=== PATIENT | female | born 1945 | race Caucasian/White ===

== ENCOUNTER → 2018-06-22 09:29 | Outpatient (CLI) | payer MEDICARE, OTHER | END | disposition home or self-care (01) | LOC: D.HCCARDIO 09:29 | PROVIDERS: ATTEND Internal Medicine Cardiovascular Disease | DX: R07.9 Chest pain, unspecified (principal) ==

== ENCOUNTER 2018-07-04 11:59 | Outpatient (CLI) | payer MEDICARE, OTHER ==
[~2018-07-04] VITALS: Ht 162.6 cm; Wt 84.1 kg
--- NOTE | ~2018-07-04 | HEMODYNAMI ---
PATIENT:MARY LYMAN MEDICAL RECORD: [id number] : 45 LOCATION:[facility] ADMISSION DATE: 07/04/18 Generatedon:07/04/201816:12 Patient name: MARY LYMAN Patient #: [id number] SSN: : Date of study: 07/04/2018 Page: Of Hemodynamic Procedure Report Patient Data Patient Demographics Procedure consent was obtained First Name: MARY Gender: Female Last Name: ESMER : 1945 Middle Initial: M Age: 72 year(s) Patient #: [id number] Race: Unknown Additional ID: [id number] Contact details [address]: [address] [place] [address] State: [place] City: [place] Zip code: [address] Past Medical History Allergies Allergen Reaction Date Comments Reported Other allergy 07/04/2018 WILIAM PEGUERO Admission Admission Data Admission Date: 07/04/2018 Admission Time: 11:59 Height (in.): 64 BSA: 1.91 (m2) Height (cm.): 162.56 BMI: 32.27 (kg/m2) Weight (lbs.): 188 Weight (kg.): 85.28 Lab Results Lab Result Date: 07/04/2018 Lab Result Time: 0:00 Biochemistry Name Units Result Min Max BUN mg/dl 14 --(--*-)-- 7 18 Creatinine mg/dl 0.7 --(*---)-- 0.6 1.3 CBC Name Units Result Min Max Hematocrit % 39.4 -*(----)-- 42 54 Hemoglobin g/dl 13.1 -*(----)-- 13.5 17.5 Procedure Procedure Types Cath Procedure Diagnostic Procedure C [facility] w/Coronaries Procedure Description Procedure Date Procedure Date: 07/04/2018 Procedure Start Time: 15:57 Procedure End Time: 16:11 Procedure Staff Name Function Maxwell Gonzáles MD Performing Physician Tawanna Arevalo RN Nurse Bhupinder Panda RT Monitor Peggy Babin RT Scrub Yolande Duke RN Crystalizer Procedure Data Cath Procedure Fluoroscopy Diagnostic fluoroscopy Total fluoroscopy Time: 1.3 time: 1.3 min min Diagnostic fluoroscopy Total fluoroscopy dose: 337 dose: 337 mGy mGy Contrast Material Contrast Material Type Amount (ml) Isovue 300 0 Isovue 370 42 Entry Location Entry Primary Successful Side Size Upsize Upsize Entry Closure Succes sful Closure Location (Fr) 1 (Fr) 2 (Fr) Remarks Device Remarks Femoral Right 5 Fr Exoseal artery Diagnostic catheters Device Type Used For End Catheter Placement MULTIPACK JL 4.0 5Fr Left Coronary catheter Angiography MULTIPACK 3DRC 5Fr Right Coronary catheter Angiography MULTIPACK Pigtail 5 Fr LV Angiography catheter Procedure Complications No complications Procedure Medications Medication Administration Route Dosage 0.9% NaCl I.V. 100 ml/hr Oxygen etCO2 Nasal cannula 2 l/min Lidocaine 2% added to field 20 Heparin Flush Bag added to field 2 bags (1000units/500ml NS) Versed I.V. 2 mg Fentanyl I.V. 50 mcg Versed I.V. 2 mg Fentanyl I.V. 50 mcg Hemodynamics Rest BSA: 1.91 (m2) HGB: 13.1 (g/dl) O2 Consumption: Estimated: 175.77 (ml/min) O2 Co nsumption indexed: Estimated:92.03 (ml/min/m) Heart Rate: 71 (bpm) Pressure Samples Time Site Value (mmHg) Purpose Heart Use Rate(bpm) 16:05 LV 127/2,16 EDP 72 16:05 AO 136/64(96) Pullback 78 16:05 LV 137/-3,16 Pullback 78 Gradients Valve Time Site 1 Site 2 Mean SEP/DFP Peak To Heart Use (mmHg) (sec/min) Peak Rate (mmHg) (bpm) Aortic 16:05 LV AO 6 17 1 78 137/-3,16 136/64(96) Calculations Valve P-P Mean Valve Index Valve Source Name Gradient Area Flow (cm2) Aortic 1 6 1 6 Snapshots Pre Cath Intra NCS Post Cath Vital Signs Time Heart Resp SPO2 etCO2 NIBP (mmHg) Rhythm Pain Sedation Rate (ipm) (%) (mmHg) Status Level (bpm) 15:52:02 67 11 100 44.7 122/66(101) NSR 0 (11) 10(A) , No pain 15:57:04 64 15 97 40.2 100/58(71) NSR 0 (11) 10(A) , No pain 16:01:09 67 31 99 38 86/54(74) NSR 0 (11) 9(A) , No pain 16:05:56 78 14 96 46.9 123/78(104) NSR 0 (11) 9(A) , No pain 16:10:08 75 15 98 43.2 141/72(109) NSR 0 (11) 10(A) , No pain Medications Time Medication Route Dose Verified Delivered Reason Notes Eff ectiveness by by 15:51:03 0.9% NaCl I.V. 100 Maxwell Tawanna used for ml/hr Eliecer Arevalo neonatal icu coordinator 15:51:09 Oxygen etCO2 2 Maxwell Tawanna used for Nasal l/min Eliecer Arevalo procedure cannula RN 15:51:14 Lidocaine 2% added 20ml Maxwell Maxwell for local to vial Eliecer Gonzáles MD anesthetic field 15:51:19 Heparin Flush added 2 Maxwell Maxwell used for Bag to bags Eliecer Gonzáles MD procedure (1000units/500ml field NS) 15:55:37 Versed I.V. 2 mg Maxwell Tawanna for Eliecer Arevalo sedation RN 15:55:46 Fentanyl I.V. 50 Maxwell Tawanna for mcg Eliecer Arevalo sedation RN 16:00:49 Versed I.V. 2 mg Maxwell Tawanna for Eliecer Arevalo sedation RN 16:00:56 Fentanyl I.V. 50 Maxwell Tawanna for mcg Eliecer Arevalo sedation rougher helper Log Time Note 15:08:47 Signed procedure consent form obtained from patient. 15:08:48 Time tracking: Regular hours (M-F 7:00 - 5:00) 15:08:51 Plan of Care:Hemodynamics will remain stable., Cardiac rhythm will remain stable., Comfort level will be maintained., Respiratory function will remain adequate., Patient/ family verbilizes understanding of procedure., Procedure tolerated without complication., Recovers from procedure without complications.. 15:08:53 Diagnostic Cath status Elective 15:10:57 H&P Date Dictated: 06/18/2018 Within 30 days and on chart., H&P Addendum completed by physician on day of procedure. (MUST COMPLETE FOR ALL OUTPATIENTS). 15:11:12 Patient allergic to Other allergyCODEINE, THORAZINE 15:12:18 Patient Height : 64 inches 15:12:22 Patient Weight : 188 lbs 15:27:14 Lab Result : BUN 14 mg/dl 15:27:14 Lab Result : Hemoglobin 13.1 g/dl 15:27:14 Lab Result : Creatinine 0.7 mg/dl 15:27:14 Lab Result : Hematocrit 39.4 % 15:31:23 Yolande Duke RN sent for patient. Start room use. 15:40:24 Patient received from Pre/Post Procedure Room to CCL 1 Alert and oriented. Tansferred to table in Supine position. 15:40:25 Warm blankets applied, and stephanie hugger turned on for patient comfort. 15:40:25 Correct patient and procedure confirmed by team. 15:40:26 ECG and BP/O2 sat monitors applied to patient. 15:50:50 Vital chart was started 15:51:03 0.9% NaCl 100 ml/hr I.V. was administered by Tawanna Arevalo RN; used for procedure; 15:51:09 Oxygen 2 l/min etCO2 Nasal cannula was administered by Tawanna Arevalo RN; used for procedure; 15:51:14 Lidocaine 2% 20ml vial added to field was administered by Maxwell Gonzáles MD; for local anesthetic; 15:51:19 Heparin Flush Bag (1000units/500ml NS) 2 bags added to field was administered by Maxwell Gonzáles MD; used for procedure; 15:52:36 Baseline sample Acquired. 15:52:40 Rhythm: sinus rhythm 15:52:41 Full Disclosure recording started 15:52:42 Pre-procedure instructions explained to patient. 15:52:42 Pre-op teaching completed and patient verbalized understanding. 15:52:47 Family in waiting room. 15:52:50 Patient NPO since Midnight. 15:52:51 Is the patient allergic to Iodine/contrast media? No. 15:52:58 Is patient on blood thinner?No 15:53:46 Patient diabetic? No. 15:53:47 ----Pre-sedation anethsthesia assessment.---- 15:53:50 Previous problem with sedation/anesthesia? No ? 15:53:52 Snore? Yes 15:53:54 Sleep apnea? Yes 15:53:55 Deviated septum? No 15:53:57 Opens mouth fully? Yes 15:53:58 Sticks out tongue? Yes 15:54:03 Airway obstruction? Yes COPD 15:54:07 Dentures? No ? 15:54:10 Pre procedure: right dorsailis pedis pulse 1+ Palpable, but thready & weak; easily obliterated 15:54:16 Modified Alpesh's test Ulnar > 7 seconds. 15:54:19 Patient pain scale 0/10 ?. 15:54:32 IV patent on arrival in left antecubital with 0.9% NaCl at 10ml/hr. 15:54:35 Lab results completed and on chart. 15:54:38 Right groin area was prepped with chlora-prep and draped in sterile fashion 15:54:39 Alarms reviewed by R. N. 15:54:40 Sharps counted by scrub and verified by R.N. 15:54:41 Physician arrived 15:54:42 --------ALL STOP TIME OUT------ 15:54:42 Final Timeout: patient, procedure, and site verified with staff and physician. All members of the team are in agreement. 15:54:47 Right groin site verified by team. 15:54:50 Maximum allowable Isovue 300 dose 300ml. Physician notified. (300ml for normal creatinines. For patients with creatinine of 1.7 or higher multiply weight(kg) x 5 divided by creatinine.) 15:54:55 Fire Safety Assessment: A--An alcohol-based skin anteseptic being used preoperatively., C--Open oxygen or nitrous oxide is being used., D--An ESU, laser, or fiber-optic light is being used. 15:54:58 Physical assessment completed. ASA score P 2 - A patient with mild systemic disease as per Maxwell Gonzáles MD. 15:55:01 Sedation plan: IV Moderate Sedation Medication:Versed, Fentanyl 15:55:16 Use device set Femoral Dx 15:55:17 ACIST Syringe (36537) opened to sterile field. 15:55:17 Bag Decanter () opened to sterile field. 15:55:18 Medline Cath Pack ([id number]) opened to sterile field. 15:55:18 DIAGNOSTIC WIRE .035 260cm J wire (249916) opened to sterile field. 15:55:20 ACIST Hand Control (38813) opened to sterile field. 15:55:20 ACIST Manifold (73940) opened to sterile field. 15:55:20 DIAGNOSTIC Multipack 5Fr catheter set ([id number]) opened to sterile field. 15:55:22 Tegaderm 4 x 4 (1626W) opened to sterile field. 15:55:25 SHEATH 5FR [place] ([id number]) opened to sterile field. 15:55:37 Versed 2 mg I.V. was administered by Tawanna rAevalo RN; for sedation; 15:55:46 Fentanyl 50 mcg I.V. was administered by Tawanna Arevalo RN; for sedation; 15:56:56 Procedure started. 15:57:13 Local anesthetic to right femoral artery with Lidocaine 2% by Maxwell Gonzáles MD.INITIAL ACCESS ONLY 15:57:22 A 5 Fr sheath was inserted into the Right Femoral artery 15:57:44 Zero performed for pressure channel P1 15:58:43 A MULTIPACK JL 4.0 5Fr catheter was advanced over the wire and used for Left Coronary Angiography. 15:58:47 LCA angiography performed. 16:00:49 Versed 2 mg I.V. was administered by Tawanna Arevalo RN; for sedation; 16:00:56 Fentanyl 50 mcg I.V. was administered by Tawanna Arevalo RN; for sedation; 16:03:17 Catheter exchanged over wire. 16:03:25 A MULTIPACK 3DRC 5Fr catheter was advanced over the wire and used for Right Coronary Angiography. 16:03:28 RCA angiography performed. 16:05:03 Catheter exchanged over wire. 16:05:09 A MULTIPACK Pigtail 5 Fr catheter was advanced over the wire and used for LV Angiography. 16:05:39 EF : 55 % 16:05:47 LV gram done using LAI 16:05:48 LV hemodynamics recorded. 16:08:43 Catheter exchanged over wire. 16:08:46 EXOSEAL 5Fr (EX500) opened to sterile field. 16:09:10 Sheath removed intact; hemostasis achieved with Exoseal to the Right Femoral artery. 16:09:12 Procedure ended.(Physican Out) 16::48 Fluoroscopy time 01.30 minutes. 16::53 Fluoroscopy dose: 337 mGy 16::53 Flurop Dose total: 337 16:09:57 Contrast amount:Isovue 300 0ml. 16:10:04 Contrast amount:Isovue 370 42ml. 16:10:06 Sharps counted by scrub and verified by R.N. 16:10:06 Insertion/operative site no bleeding no hematoma. 16:10:10 Post-op/insertion site Right Femoral artery dressed using a 4 x 4 and Tegaderm. 16:10:13 Post right femoral artery:stable 16:10:43 Post Procedure Pulses reassessed and unchanged 16:10:45 Post procedure: right dorsailis pedis pulse 1+ Palpable, but thready & weak; easily obliterated. 16:10:48 Post procedure rhythm: sinus rhythm 16:10:49 Post procedure instruction explained to patient.Patient verbalizes understanding. 16:10:50 Procedure and supply charges have been captured, reviewed, submitted and are correct. 16:11:06 Procedure Complication : No complications 16:11:08 Vital chart was stopped 16:11:09 See physician's report for complete and final results. 16:11:12 Report given to Pre/Post Procedure Room. 16:11:14 Patient transfered to Pre/Post Procedure Room with Stretcher. 16:11:18 Procedure ended. 16:11:18 Full Disclosure recording stopped 16:11:21 End room use (Document Last) Device Usage Item Name Manufacture Quantity Catalog Hospital Part Current Minimal L ot# / Number Charge Number Stock Stock Serial# Code ACIST Acist 1 64454 955850 113320 271262 20 Syringe Medical (53901) Systems Inc Bag Microtek 1 2001S 888032 91810 749719 5 Decanter Medical Inc. () Medline Medline 1 [id number] 165354 63136 037413 5 Cath Pack ([id number]) DIAGNOSTIC St Manuel 1 505552 124714 029228 213260 30 WIRE .035 260cm J wire (678152) ACIST Hand Acist 1 78164 928401 863855 760931 5 Control Medical (15086) Systems Inc ACIST Acist 1 59640 662102 296637 017256 5 Manifold Medical (64993) Systems Inc DIAGNOSTIC Cardinal 1 [id number] 249782 05760 803388 30 Vitalea Science Health 5Fr catheter set ([id number]) Tegaderm 4 3M 1 1626W 046316 677054 713427 5 x 4 (1626W) SHEATH 5FR Terumo 1 URZ139 710623 603157 310602 5 [place] (YJB893) MULTIPACK Cardinal 1 317969 5 JL 4.0 5Fr Health catheter MULTIPACK Cardinal 1 101742 5 3DRC 5Fr Health catheter MULTIPACK Cardinal 1 700536 5 Pigtail 5 Health Fr catheter EXOSEAL 5Fr Cardinal 1 EX500 925108 943532 705797 10 (EX500) Health Signature Audit [place] Stage Time Signature Unsigned Intra-Procedure 07/04/2018 Bhupinder Panda RT(R) 4:12:20 PM Signatures Monitor : Bhupinder Panda RT Signature : Date : Time : [address] [address]
[2018-07-04] MEDS ORDERED: ZITHROMAX250 MG PO (12:15)
[2018-07-04] MEDS ORDERED: LOPRESSOR25 MG PO (12:15)
[2018-07-04] MEDS ORDERED: PROTONIX40 MG PO (12:16)
[2018-07-04] MEDS ORDERED: ZOCOR40 MG PO (12:16)
[2018-07-04] MEDS ORDERED: ZOLOFT50 MG PO (12:17)
[2018-07-04] MEDS ORDERED: CARAFATE1 G PO (12:18)
[2018-07-04] MEDS ORDERED: ALBUTEROL SULF8.5 GM INH (12:18)
[2018-07-04] MEDS ORDERED: ASPIRIN81 MG PO (12:19)
[2018-07-04] MEDS ORDERED: VITAMIN D31000 UNI2 PO (12:20)
[2018-07-04] MEDS ORDERED: CO Q-1050 MG (12:21)
[2018-07-04 12:36] VITALS: BP 146/60; Ht 162.6 cm; Wt 84.1 kg
[2018-07-04 12:49] LABS: BASOPHILS 0.4 % (0-2); EOSINOPHILS 3.8 % (0-7); HEMATOCRIT 39.4 % (36.0-48.0); HEMOGLOBIN 13.1 g/dL (12-16); IMMATURE GRANULOCYTES 0.3 % (0-5); LYMPHOCYTES 27.3 % (15-50); MCH 29.7 pg (26.0-34.0); MCHC 33.2 g/dL (31.0-37.0); MCV 89.3 fL (80.0-100.0); MEAN PLATELET VOLUME 9.6 fL (7.4-10.4); MONOCYTES 9.2 % (2-11); PLATELET COUNT 268 10x3/uL (130-400); RBC 4.41 10x6/uL (4.00-5.40); RDW 13.5 % (11.5-14.5); WBC 7.6 10x3/uL (4.8-10.8)
[2018-07-04 12:54] LABS: CALC OSMOLALITY 281 mosm/kg (275-300); CALCIUM 8.8 mg/dL (8.5-10.1); CHLORIDE - SERUM 104 mmol/L (98-107); CREATININE - SERUM 0.7 mg/dL (0.6-1.3); GLUCOSE 93 mg/dL (74-106); POTASSIUM - SERUM 4.3 mmol/L (3.5-5.1); SODIUM 141 mmol/L (136-145); UREA NITROGEN 14 mg/dL (7-18); eGFR NON AFRICAN AMERICAN 87 mL/min (90-120)
--- NOTE | 2018-07-04 16:31 | NUR ---
RECIEVED TO ROOM VIA STRETCHER FROM GENERAL ACCOUNTING CLERK WITH 5 FR EXOSEAL R/GROIN CDI NO BLEEDING OR HEMATOMA NOTED. HR 66 BP 139/73. [facility]
--- NOTE | 2018-07-04 16:37 | NUR ---
5 FR EXOSEAL R/GROIN IS CDI WITH CHEST PAIN DENIED HR 52 BP 115/68 FAMILY IS PRESENT AT BEDSIDE INSTRUCTED PATIENT TO KEEP HEAD FLAT ON PILLOW WITH RLE STRAIGHT
--- NOTE | 2018-07-04 16:50 | NUR ---
RIGHT GROIN DRESSING C/D/I. NO S/S OF HEMATOMA NOTED. RIGHT PEDAL PULSE PALPABLE. PT TOLERATING CLEAR LIQUIDS. DENIES NAUSEA. VSS.
--- NOTE | 2018-07-04 17:10 | NUR ---
PT'S HEAD OF BED INC TO 30 DEGREES. RIGHT GROIN DRESSING C/D/I. NO S/S OF HEMATOMA NOTED. RIGHT PEDAL PULSE PALPBLE. VSS. NO NEEDS AT THIS TIME.
--- NOTE | 2018-07-04 17:30 | NUR ---
PIV REMOVED WITH DRESSING APPLIED. PATIENT DENIED CHEST PAIN WITH 5 FR EXOSEAL R/GROIN CDI. PATIENT UP TO GET DRESSED FOR DISCHARGE HOME NO DISTRESS
--- NOTE | 2018-07-04 17:40 | NUR ---
PT DRESSED SELF. AMBULATED TO RESTROOM. STEADY GAIT NOTED. VOIDED WITHOUT DIFFICULTY. DISCUSSED DISCHARGE INSTRUCTIONS WITH PT. SHE VOICED UNDERSTANDING.
--- NOTE | 2018-07-04 18:04 | NUR ---
5 FR EXOSEAL R/GROIN REMAINS CDI WITH CHEST PAIN DENIED PATIENT LEFT VIA WC TO PARKING FOR TRANSPORT HOME NO DISTRESS NOTED
== END 2018-07-04 18:06 | disposition home or self-care (01) ==
LOC: D.CATH 11:59
PROVIDERS: ATTEND Internal Medicine Cardiovascular Disease
DX: I20.9 Angina pectoris, unspecified (principal); Z01.812 Encounter for preprocedural laboratory examination

== ENCOUNTER → 2019-01-28 09:42 | Outpatient (CLI) | payer MEDICARE, OTHER ==
[2018-07-04 12:36] VITALS: BMI 31.8
[~2019-01-28 09:42] MED LIST: ALBUTEROL SULF8.5 GM INH; ASPIRIN81 MG PO; CARAFATE1 G PO; CO Q-1050 MG; LOPRESSOR25 MG PO; PROTONIX40 MG PO; VITAMIN D31000 UNI2 PO; ZITHROMAX250 MG PO; ZOCOR40 MG PO; ZOLOFT50 MG PO
== END | disposition home or self-care (01) ==
LOC: D.HCCECHO 09:42 → D.HCCARDIO 10:30
PROVIDERS: ATTEND Internal Medicine Cardiovascular Disease
DX: I10 Essential (primary) hypertension (principal)

== ENCOUNTER → 2019-09-10 09:52 | Outpatient (CLI) | payer MEDICARE, OTHER ==
[2018-07-04 12:36] VITALS: BMI 31.8
== END | disposition home or self-care (01) ==
LOC: D.HCCARDIO 09:52
PROVIDERS: ATTEND Internal Medicine Cardiovascular Disease
DX: I20.9 Angina pectoris, unspecified (principal)

== ENCOUNTER 2019-09-17 07:33 | Outpatient (CLI) | payer MEDICARE, OTHER ==
[~2019-09-17] VITALS: Ht 162.6 cm; Wt 85.6 kg
--- NOTE | ~2019-09-17 | HEMODYNAMI ---
PATIENT:MARY LYMAN MEDICAL RECORD: [id number] : 45 LOCATION:D.CAT ADMISSION DATE: 09/17/19 Generatedon:09/17/201910:32 Patient name: MARY LYMAN Patient #: [id number] : 1945 Date of study: 09/17/2019 Page: Of Hemodynamic Procedure Report Patient Data Patient Demographics Procedure consent was obtained First Name: MARY Gender: Female Last Name: ESMER : 1945 Middle Initial: M Age: 74 year(s) Patient #: [id number] Race: Unknown SSN: [id number] Additional ID: [id number] Contact details [address]: [address] [place] [address] State: [place] City: [place] Zip code: [address] Past Medical History Allergies Allergen Reaction Date Comments Reported Other allergy 07/04/2018 CODEINE, THORAZINE Other allergy 09/17/2019 Codeine, Thorazine Admission Admission Data Admission Date: 09/17/2019 Admission Time: 7:33 Arrival Date: 09/17/2019 Arrival Time: 0:00 Admit Source: Other Insurance Payor: Medicare Height (in.): 66 BSA: 1.95 (m2) Height (cm.): 167.64 BMI: 30.51 (kg/m2) Weight (lbs.): 189 Weight (kg.): 85.73 Lab Results Lab Result Date: 09/17/2019 Lab Result Time: 0:00 Biochemistry Name Units Result Min Max BUN mg/dl 16 --(---*)-- 7 18 Creatinine mg/dl 0.7 --(*---)-- 0.6 1.3 eGFR ml/min 87 -*(----)-- 90 120 NONAFRICAN CBC Name Units Result Min Max Hemoglobin g/dl 13.6 --(*---)-- 13.5 17.5 Procedure Procedure Types Cath Procedure Diagnostic Procedure C LHC w/Coronaries Sedation Charges Moderate Sedation up to 15 minutes Procedure Description Procedure Date Procedure Date: 09/17/2019 Procedure Start Time: 10:14 Procedure End Time: 10:31 Procedure Staff Name Function Maxwell Gonzáles MD Performing Physician Annia Amanda RT Monitor Tawanna Arevalo RN Nurse Marilynn Sprague RT Scrub Procedure Data Cath Procedure Fluoroscopy Diagnostic fluoroscopy Total fluoroscopy Time: 2.1 time: 2.1 min min Diagnostic fluoroscopy Total fluoroscopy dose: 365 dose: 365 mGy mGy Contrast Material Contrast Material Type Amount (ml) Isovue 300 56 Entry Location Entry Primary Successful Side Size Upsize Upsize Entry Closure Eugene ccessful Closure Location (Fr) 1 (Fr) 2 (Fr) Remarks Device Remarks Radial Right 6 Fr Mechanical artery Short Compression Estimated blood loss: 10 ml Diagnostic catheters Device Type Used For End Catheter Placement DIAGNOSTIC Beverly 110cm 5 Procedure Fr catheter ([id number]) Procedure Complications No complications Procedure Medications Medication Administration Route Dosage 0.9% NaCl I.V. 100 ml/hr Oxygen etCO2 Nasal cannula 2 l/min Lidocaine 2% added to field 20 Heparin Flush Bag added to field 2 bags (1000units/500ml NS) Radial Cocktail added to field 1 syringe (Verapamil 2mg/Nitro 400mcg/Heparin 1500units) Versed I.V. 2 mg Fentanyl I.V. 50 mcg Versed I.V. 2 mg Fentanyl I.V. 50 mcg Hemodynamics Rest BSA: 1.95 (m2) HGB: 13.6 (g/dl) O2 Consumption: Estimated: 166.76 (ml/min) O2 Co nsumption indexed: Estimated:85.52 (ml/min/m) Heart Rate: 55 (bpm) Pressure Samples Time Site Value (mmHg) Purpose Heart Use Rate(bpm) 10:17 LV 107/-1,14 Snapshot 73 Gradients Valve Time Site Site Mean SEP/DFP Peak To Heart Use 1 2 (mmHg) (sec/min) Peak Rate (mmHg) (bpm) Aortic 10:18 LV AO 65 Snapshots Pre Cath Intra NCS Post Cath Vital Signs Time Heart Resp SPO2 etCO2 NIBP (mmHg) Rhythm Pain Sedation Rate (ipm) (%) (mmHg) Status Level (bpm) 9:44:27 56 22 99 43.3 130/63(100) SB 0 (11) 10(A) , No pain 9:48:55 55 12 99 45.5 114/55(91) SB 0 (11) 10(A) , No pain 9:53:13 57 13 95 38.1 97/57(73) SB 0 (11) 10(A) , No pain 9:58:12 55 11 96 44.8 Measuring SB 0 (11) 10(A) , No pain 9:58:17 55 11 96 44.8 111/59(89) SB 0 (11) 10(A) , No pain 10:02:37 55 14 96 40.3 112/61(89) SB 0 (11) 10(A) , No pain 10:07:01 57 12 97 9.7 105/52(67) SB 0 (11) 10(A) , No pain 10:11:21 54 18 97 40.3 99/51(85) SB 0 (11) 10(A) , No pain 10:15:37 54 14 98 22.4 113/59(77) SB 0 (11) 10(A) , No pain 10:19:59 65 11 97 45.5 110/57(79) SB 0 (11) 10(A) , No pain 10:24:17 61 10 98 27.6 115/59(90) SB 0 (11) 10(A) , No pain 10:28:35 63 15 98 41.1 120/62(92) SB 0 (11) 10(A) , No pain Medications Time Medication Route Dose Verified Delivered Reason Notes E ffectiveness by by 9:40:01 0.9% NaCl I.V. 100 Maxwell Tawanna used for ml/hr Eliecer Arevalo commissioner of internal revenue 9:40:07 Oxygen etCO2 2 l/min Maxwell Tawanna used for Nasal Eliecer Arevalo procedure cannula RN 9:40:12 Lidocaine 2% added 20ml Maxwell Maxwell for local to vial Eliecer Gonzáles MD anesthetic field 9:40:16 Heparin Flush added 2 bags Maxwell Maxwell used for Bag to Eliecer Gonzáles MD procedure (1000units/500ml field NS) 9:40:22 Radial Cocktail added 1 Maxwell Maxwell used for (Verapamil to syringe Eliecer Gonzáles MD procedure 2mg/Nitro field 400mcg/Heparin 1500units) 10:11:03 Fentanyl I.V. 50 mcg Maxwell Tawanna for Eliecer Arevalo sedation RN 10:11:51 Versed I.V. 2 mg Maxwell Tawanna for Eliecer Arevalo sedation RN 10:15:11 Versed I.V. 2 mg Maxwell Tawanna for Eliecer Arevalo sedation RN 10:15:16 Fentanyl I.V. 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 9:32:32 Tawanna Arevalo RN sent for patient. Start room use. 9:32:40 Time tracking: Regular hours (M-F 7:00 - 5:00) 9:32:46 Plan of Care:Hemodynamics will remain stable., Cardiac rhythm will remain stable., Comfort level will be maintained., Respiratory function will remain adequate., Patient/ family verbilizes understanding of procedure., Procedure tolerated without complication., Recovers from procedure without complications.. 9:32:54 Patient received from Pre/Post Procedure Room to CCL 1 Alert and oriented. Tansferred to table in Supine position. 9:32:57 Signed procedure consent form obtained from patient. 9:32:59 Warm blankets applied, and stephanie hugger turned on for patient comfort. 9:33:00 Correct patient and procedure confirmed by team. 9:33:01 ECG and BP/O2 sat monitors applied to patient. 9:40:01 0.9% NaCl 100 ml/hr I.V. was administered by Tawanna Arevalo RN; used for procedure; Verbal order read back and verified. 9:40:07 Oxygen 2 l/min etCO2 Nasal cannula was administered by Tawanna Arevalo RN; used for procedure; Verbal order read back and verified. 9:40:12 Lidocaine 2% 20ml vial added to field was administered by Maxwell Gonzáles MD; for local anesthetic; Verbal order read back and verified. 9:40:16 Heparin Flush Bag (1000units/500ml NS) 2 bags added to field was administered by Maxwell Gonzáles MD; used for procedure; Verbal order read back and verified. 9:40:22 Radial Cocktail (Verapamil 2mg/Nitro 400mcg/Heparin 1500units) 1 syringe added to field was administered by Maxwell Gonzáles MD; used for procedure; Verbal order read back and verified. 9:43:12 Vital chart was started 9:43:13 Baseline sample Acquired. 9:43:17 Rhythm: sinus rhythm 9:43:19 Full Disclosure recording started 9:43:37 H&P Date Dictated: 09/03/2019 Within 30 days and on chart., H&P Addendum completed by physician on day of procedure. (MUST COMPLETE FOR ALL OUTPATIENTS). 9:43:39 Pre-procedure instructions explained to patient. 9:43:41 Family in waiting room. 9:43:44 Patient NPO since Midnight. 9:44:06 Patient allergic to Other allergyCodeine, Thorazine 9:44:08 Was the patient premedicated? Yes 9:44:14 Is patient on blood thinner?No 9:44:16 Patient diabetic? No. 9:44:24 Snore? Yes 9:44:25 Sleep apnea? Yes 9:44:34 Airway obstruction? Yes COPD 9:44:41 Patient pain scale 0/10 ?. 9:44:48 IV patent on arrival in left forearm with 0.9% NaCl at KVO. 9:45:49 Lab results completed and on chart. 9:48:43 Lab Result : BUN 16 mg/dl 9:48:43 Lab Result : Creatinine 0.7 mg/dl 9:48:43 Lab Result : Hemoglobin 13.6 g/dl 9:48:43 Lab Result : eGFR NONAFRICAN 87 ml/min 9:48:49 Right Radial & Right Groin area was prepped with chlora-prep and draped in sterile fashion 9:48:50 Alarms reviewed by R. N. 9:48:51 Sharps counted by scrub and verified by R.N. 9:49:06 2) 60-89 Mildly reduced kidney function, and other findings (as for stage 1) point to kidney disease. 9:49:11 Maximum allowable contrast dose (3.7 X eGFR X 0.75)241 ml. 9:58:53 Zero performed for pressure channel P1 10:09:54 Zero performed for pressure channel P1 10:10:44 Physician arrived 10:10:45 --------ALL STOP TIME OUT------ 10:10:46 Final Timeout: patient, procedure, and site verified with staff and physician. All members of the team are in agreement. 10:10:49 Right Radial & Right Groin site verified by team. 10:10:55 Fire Safety Assessment: A--An alcohol-based skin anteseptic being used preoperatively., C--Open oxygen or nitrous oxide is being used., D--An ESU, laser, or fiber-optic light is being used. 10:11:01 Physical assessment completed. ASA score P 2 - A patient with mild systemic disease as per Maxwell Gonzáles MD. 10:11:03 Fentanyl 50 mcg I.V. was administered by Tawanna Arevalo RN; for sedation; Verbal order read back and verified. 10:11:05 Sedation plan: IV Moderate Sedation Medication:Versed, Fentanyl 10:11:31 Use device set Radial Dx or PCI 10:11:38 ACIST Syringe (67718) opened to sterile field. 10:11:38 Medline Cath Pack ([id number]) opened to sterile field. 10:11:39 Bag Decanter () opened to sterile field. 10:11:39 ACIST Hand Control (14943) opened to sterile field. 10:11:40 ACIST Manifold (47561) opened to sterile field. 10:11:42 Tegaderm 4 x 4 (1626W) opened to sterile field. 10:11:45 NEEDLE Cook 21G 4cm Radial ([id number]) opened to sterile field. 10:11:46 EMERALD Guide Wire (958-883) opened to sterile field. 10:11:48 SHEATH 6FR RAIN (3810006) opened to sterile field. 10:11:51 Versed 2 mg I.V. was administered by Tawanna Arevalo RN; for sedation; Verbal order read back and verified. 10:11:51 MBrace Wrist Support ([id number]) opened to sterile field. 10:11:59 Procedure started. 10:14:04 Local anesthetic to right radial artery with Lidocaine 2% by Maxwell Gonzáles MD.INITIAL ACCESS ONLY 10:14:19 A 6 Fr Short sheath was inserted into the Right Radial artery 10:15:11 Versed 2 mg I.V. was administered by Tawanna Arevalo RN; for sedation; Verbal order read back and verified. 10:15:16 Fentanyl 50 mcg I.V. was administered by Tawanna Arevalo RN; for sedation; Verbal order read back and verified. 10:16:28 A DIAGNOSTIC Beverly 110cm 5 Fr catheter (811243) was advanced over the wire and used for Procedure. 10:17:29 LV angiography performed. 10:18:16 EF : 55 % 10:18:17 LV gram done using LAI 10:18:44 LCA angiography performed. 10:26:13 RCA angiography performed. 10:26:42 ZEPHYR LARGE TR BAND (114320) opened to sterile field. 10:26:48 Catheter removed. 10::59 Sheath removed intact; hemostasis achieved with Mechanical Compression to the Right Radial artery. 10:27:03 Procedure ended.(Physican Out) 10:27:14 Fluoroscopy time 02.10 minutes. 10:27:18 Flurop Dose total: 365 10:27:18 Fluoroscopy dose: 365 mGy 10:27:24 Dose Area Product 37077 mGy/cm. 10:29:51 Contrast amount:Isovue 300 56ml. 10:29:55 Maximum allowable dose exceeded? No. 10:29:[address] band inflated with 10cc of air. 10:30:00 Insertion/operative site no bleeding no hematoma. 10:30:04 Post Procedure Pulses reassessed and unchanged 10:30:07 Post-procedure physical assessment completed. ASA score P 2 - A patient with mild systemic disease as per Maxwell Gonzáles MD. 10:30:10 Post procedure rhythm: unchanged. 10:30:14 Estimated blood loss: 10 ml 10:30:16 Post procedure instruction explained to patient.Patient verbalizes understanding. 10:30:33 Procedure type changed to Cath procedure, Diagnostic procedure, LHC, [facility] w/Coronaries, Sedation Charges, Moderate Sedation up to 15 minutes 10:30:35 Procedure and supply charges have been captured, reviewed, submitted and are correct. 10:31:02 Procedure Complication : No complications 10:31:05 Vital chart was stopped 10:31:07 [facility] Findings: mild to moderate CAD (<70%) 10:31:12 See physician's report for complete and final results. 10:31:13 Report given to Pre/Post Procedure Room. 10:31:16 Patient transfered to Pre/Post Procedure Room with Stretcher. 10:31:19 Procedure ended. 10:31:19 Full Disclosure recording stopped 10:31:23 End room use (Document Last) 10:31:23 End room use (Document Last) 10:31:23 End room use (Document Last) Device Usage Item Name Manufacture Quantity Catalog Hospital Part Current Minima l Lot# / Number Charge Number Stock Stock Serial# Code ACIST Acist 1 56570 945318 [id number] [id number] 20 Syringe Medical (05295) Systems Inc Medline Medline 1 [id number] 07957 885108 5 Cath Pack ([id number]) Bag Microtek 1 2001S 432377 71232 320746 5 Decanter Medical Inc. () ACIST Hand Acist 1 54453 924980 487666 614904 5 Control Medical (44841) Systems Inc ACIST Acist 1 57100 851728 176742 300062 5 Manifold Medical (40502) Systems Inc Tegaderm 4 3M 1 1626W [id number] 741298 035887 5 x 4 (1626W) NEEDLE Cook Cook Medical 1 [id number] 561309 251082 002481 5 21G 4cm Radial (S19065) EMERALD Cardinal 1 502-455 777824 279489 825644 5 Guide Wire Health (502-455) SHEATH 6FR Cardinal 1 [id number] 198221 0374059 258894 5 [facility] (4372038) MBrace Advanced 1 140-0250-00 071158 50481 366255 5 Wrist Vascular Support Dynamics ([id number]) DIAGNOSTIC Terumo 1 40-9887 780254 746209 127290 5 Beverly 110cm 5 Fr catheter (592640) ZEPHYR Cardinal 1 432460 705153 1377806 940650 5 LARGE TR Health BAND (507899) Signature Audit [place] Stage Time Signature Unsigned Intra-Procedure 09/17/2019 Annia Amanda 10:31:47 AM RT(R) Intra-Procedure 09/17/2019 Tawanna Arevalo 10:32:13 AM RN Intra-Procedure 09/17/2019 Maxwell Gonzáles MD 10:32:37 AM [facility] [address] [place] [id number]
[2019-09-17] MEDS ORDERED: BREO ELLIPTA 21 EACH (07:50)
[2019-09-17] MEDS ORDERED: VITAMIN B-121000 MCG PO (07:51)
[2019-09-17] MEDS ORDERED: ASCORBIC ACID500 MG PO (07:51)
[2019-09-17] MEDS ORDERED: MULTI-DAY VITAM1 TAB PO (07:52)
[2019-09-17] MEDS ORDERED: MELATONIN10 M1 PO (07:53)
[2019-09-17] MEDS ORDERED: SINGULAIR10 MG PO (07:55)
[2019-09-17 08:21] VITALS: BP 121/61; Ht 162.6 cm; Wt 85.6 kg
[2019-09-17 08:22] LABS: BASOPHILS 0.7 % (0-2); EOSINOPHILS 2.5 % (0-7); HEMATOCRIT 41.9 % (36.0-48.0); HEMOGLOBIN 13.6 g/dL (12-16); IMMATURE GRANULOCYTES 0.2 % (0-5); LYMPHOCYTES 28.7 % (15-50); MCHC 32.5 g/dL (31.0-37.0); MCV 92.3 fL (80.0-100.0); MEAN PLATELET VOLUME 9.2 fL (7.4-10.4); MONOCYTES 9.6 % (2-11); NEUTROPHILS 58.3 % (40-80); PLATELET COUNT 269 10x3/uL (130-400); RBC 4.54 10x6/uL (4.00-5.40); RDW 14.3 % (11.5-14.5); WBC 6.1 10x3/uL (4.8-10.8)
[2019-09-17 08:53] LABS: ALT (SGPT) 32 U/L (10-68); CALC OSMOLALITY 279 mosm/kg (275-300); CALCIUM 8.7 mg/dL (8.5-10.1); CHLORIDE - SERUM 105 mmol/L (98-107); CHOL - HDL RATIO 3.1 ratio (2.3-4.1); CHOLESTEROL, TOTAL 180 mg/dL (0-200); CREATININE - SERUM 0.7 mg/dL (0.6-1.3); GLUCOSE 100 mg/dL (74-106); HDL CHOLESTEROL 58 mg/dL (32-96); LDL CHOLESTEROL 100 mg/dL (0-100); LDL-HDL RATIO 1.7 ratio (1.5-3.5); POTASSIUM - SERUM 4.1 mmol/L (3.5-5.1); SODIUM 140 mmol/L (136-145); TRIGLYCERIDE 111 mg/dL (30-200); UREA NITROGEN 16 mg/dL (7-18); eGFR NON AFRICAN AMERICAN 87 mL/min (90-120)
--- NOTE | 2019-09-17 10:42 | NUR ---
PT ARRIVED BY STRETCHER. PLACED ON MONITORS. ASSESSMENT COMPLETED. VSS AT THIS TIME. FAMILY AT BEDSIDE. CALL LIGHT WITHIN REACH.
[2019-09-17] MEDS ORDERED: ISOSORBIDE MONO30 M1 PO (10:47)
--- NOTE | 2019-09-17 10:57 | NUR ---
RIGHT WRIST DRESSING C/D/I. NO S/S OF HEMATOMA NOTED. CALL LIGHT WITHIN REACH. VSS AT THIS TIME. FAMILY AT BEDSIDE.
--- NOTE | 2019-09-17 11:30 | NUR ---
RIGHT WRIST Z BAND IN PLACE. NO BLEEDING/HEMATOMA NOTED. PT SITTING UP IN BED. DENIES NAUSEA AT THIS TIME. PT SET UP WITH SANDWICH TRAY AND DRINK. VSS AT THIS TIME.
--- NOTE | 2019-09-17 12:00 | NUR ---
2cc OF AIR REMOVED FROM Z BAND. NO BLEEDING/HEMATOMA NOTED. CALL LIGHT WITHIN REACH. VSS AT THIS TIME. PT REMOVED FROM MONITORS. AMBULATED TO RESTROOM. VOIDED WITHOUT DIFFICULTY. STEADY GAIT NOTED.
--- NOTE | 2019-09-17 12:15 | NUR ---
3cc OF AIR REMOVED FROM Z BAND. NO BLEEDING/HEMATOMA NOTED. CALL LIGHT WITHIN REACH. VSS AT THIS TIME. FAMILY AT BEDSIDE.
--- NOTE | 2019-09-17 12:30 | NUR ---
4cc OF AIR REMOVED FROM Z BAND. NO BLEEDING/HEMATOMA NOTED. CALL LIGHT WITHIN REACH. FAMILY AT BEDSIDE.
--- NOTE | 2019-09-17 12:45 | NUR ---
Z BAND REMOVED AND DRESSING APPLIED. NO BLEEDING/HEMATOMA NOTED. RIGHT WRIST BRACE IN PLACE. PIV D/C'D WITH CATH TIP INTACT. TOLERATED WELL. VSS. PT INSTRUCTED TO GET UP AND DRESSED AT THIS TIME.
--- NOTE | 2019-09-17 12:55 | NUR ---
DISCUSSED DISCHARGE INSTRUCTIONS WITH PT AND PT'S FAMILY. THEY VOICED UNDERSTANDING. PRESCRIPTION FOR IMDUR IN PT'S DISCHARGE FOLDER.
--- NOTE | 2019-09-17 13:00 | NUR ---
RIGHT WRIST DRESSING C/D/I. NO S/S OF HEMATOMA NOTED. PT TAKEN DOWN TO VEHICLE BY WHEELCHAIR. NO S/S OF DISTRESS NOTED. ALL BELONGINGS AND PAPERWORK IN HAND.
== END 2019-09-17 13:00 | disposition home or self-care (01) ==
LOC: D.CATH 07:33
PROVIDERS: ATTEND Internal Medicine Cardiovascular Disease
DX: I25.119 Atherosclerotic heart disease of native coronary artery with unspecified angina pectoris (principal); J44.9 Chronic obstructive pulmonary disease, unspecified; E78.5 Hyperlipidemia, unspecified; R06.00 Dyspnea, unspecified; R07.89 Other chest pain; I34.0 Nonrheumatic mitral (valve) insufficiency; I10 Essential (primary) hypertension; I20.9 Angina pectoris, unspecified

== ENCOUNTER → 2020-06-01 09:11 | Outpatient (CLI) | payer MEDICARE, OTHER ==
[2019-09-17 08:21] VITALS: BMI 32.4
[~2020-06-01 09:11] MED LIST changes: +ASCORBIC ACID500 MG PO; +BREO ELLIPTA 21 EACH; +ISOSORBIDE MONO30 M1 PO; +MELATONIN10 M1 PO; +MULTI-DAY VITAM1 TAB PO; +SINGULAIR10 MG PO; +VITAMIN B-121000 MCG PO
== END ==
LOC: D.LAB 09:11
PROVIDERS: ATTEND Internal Medicine Pulmonary Disease
DX: Z11.52 Encounter for screening for COVID-19 (principal)

== ENCOUNTER → 2020-06-05 09:01 | Outpatient (CLI) | payer MEDICARE, OTHER ==
[2019-09-17 08:21] VITALS: BMI 32.4
== END | disposition home or self-care (01) ==
LOC: D.RT 09:01
PROVIDERS: ATTEND Internal Medicine Pulmonary Disease
DX: J44.9 Chronic obstructive pulmonary disease, unspecified (principal); Z11.52 Encounter for screening for COVID-19